=== PATIENT | female | born 1985 | race Caucasian/White ===

== ENCOUNTER 2018-11-08 09:06 | Inpatient (IN) | payer OTHER ==
[~2018-11-08] VITALS: Ht 157.5 cm; Wt 99.5 kg
--- OUTSIDE RECORDS SUMMARY | 2018-11-08 09:08 | XMS REPORT ---
Author Author [facility] Address Unknown Phone Unavailable Care Team Providers Care Stucco Plasterer Name Role Phone SAE VEGA Unavailable Unavailable TITIMARCELLA Unavailable Unavailable Problems This patient has no known problems. Allergies, Adverse Reactions, Alerts This patient has no known allergies or adverse reactions. Medications This patient has no known medications. Results Test Description Test Time Test Comments Text Results Atomic Results Result Comments T3 2018-11-06 14:39:00 T3 TOTAL (BEAKER) (test bwsh=622) 299 ng/dL 48-159 T4, [id number] 17:54:00* Test Item Value Reference Range Comments FREE T4 (BEAKER) (test unon=674) 1.74 ng/dL 0.70-1.48 TSH/FREE T4 IF [id number] 17:24:00* Test Item Value Reference Range Comments THYROID STIMULATING HORMONE (BEAKER) (test eroj=663) 0.01 uIU/mL 0.35-4.94 BASIC METABOLIC [id number] 16:15:00* Test Item Value Reference Range Comments SODIUM (BEAKER) (test puol=054) 139 meq/L 135-148 POTASSIUM (BEAKER) (test gqnw=541) 2.6 meq/L 3.6-5.5 CHLORIDE (BEAKER) (test uhqe=765) 101 meq/L 98-106 CO2 (BEAKER) (test pjqq=815) 28 meq/L 24-32 BLOOD UREA NITROGEN (BEAKER) (test erho=904) 16 mg/dL 10-26 CREATININE (BEAKER) (test mngo=011) 0.98 mg/dL 0.50-1.20 GLUCOSE RANDOM (BEAKER) (test hhdo=311) 92 mg/dL 70-110 CALCIUM (BEAKER) (test cfop=952) 9.7 mg/dL 8.5-10.5 EGFR (BEAKER) (test nabe=4112) 66 mL/min/1.73 sq m ESTIMATED GFR IS NOT ACCURATE CREATININE CLEARANCE IN PREDICTING GLOMERULAR FILTRATION RATE. ESTIMATED GFR IS NOT APPLICABLE FOR DIALYSIS PATIENTS. CBC W/PLT COUNT & AUTO [id number] 16:03:00* Test Item Value Reference Range Comments WHITE BLOOD CELL COUNT (BEAKER) (test hmtx=193) 13.6 K/ L 4.0-10.0 RED BLOOD CELL COUNT (BEAKER) (test orsh=678) 4.80 M/ L 4.00-5.00 HEMOGLOBIN (BEAKER) (test skru=157) 12.8 GM/DL 12.0-15.0 HEMATOCRIT (BEAKER) (test eppp=322) 39.1 % 36.0-45.0 MEAN CORPUSCULAR VOLUME (BEAKER) (test pkyz=296) 81.4 fL 82.0-99.0 MEAN CORPUSCULAR HEMOGLOBIN (BEAKER) (test rjvn=352) 26.6 pg 27.0-33.0 MEAN CORPUSCULAR HEMOGLOBIN CONC (BEAKER) (test fjxt=404) 32.6 GM/DL 32.0-36.0 RED CELL DISTRIBUTION WIDTH (BEAKER) (test ftid=243) 11.9 % 10.3-14.2 PLATELET COUNT (BEAKER) (test abns=607) 262 K/CU MM 150-430 MEAN PLATELET VOLUME (BEAKER) (test tdcv=349) 10.0 fL 6.5-10.5 NEUTROPHILS RELATIVE PERCENT (BEAKER) (test vxti=299) 75 % LYMPHOCYTES RELATIVE PERCENT (BEAKER) (test pwce=780) 14 % MONOCYTES RELATIVE PERCENT (BEAKER) (test zhuz=411) 8 % EOSINOPHILS RELATIVE PERCENT (BEAKER) (test nvfu=610) 2 % BASOPHILS RELATIVE PERCENT (BEAKER) (test jqcj=169) 1 % NEUTROPHILS ABSOLUTE COUNT (BEAKER) (test aciu=426) 10.23 K/ L 1.80-8.00 LYMPHOCYTES ABSOLUTE COUNT (BEAKER) (test bgqt=103) 1.92 K/ L 1.48-4.50 MONOCYTES ABSOLUTE COUNT (BEAKER) (test sezs=396) 1.09 K/ L 0.00-1.30 EOSINOPHILS ABSOLUTE COUNT (BEAKER) (test apug=979) 0.26 K/ L 0.00-0.50 BASOPHILS ABSOLUTE COUNT (BEAKER) (test nhjj=739) 0.10 K/ L 0.00-0.20 URINALYSIS W/ [id number] 16:03:00* Test Item Value Reference Range Comments COLOR (BEAKER) (test rhis=455) Yellow CLARITY (BEAKER) (test eqdt=932) Slightly Cloudy SPECIFIC GRAVITY UA (BEAKER) (test muoe=680) 1.020 1.001-1.035 PH UA (BEAKER) (test vrel=039) 7.0 5.0-8.0 PROTEIN UA (BEAKER) (test vfrg=616) 100 mg/dL Negative GLUCOSE UA (BEAKER) (test chlx=360) Negative Negative KETONES UA (BEAKER) (test nowe=181) Trace Negative BILIRUBIN UA (BEAKER) (test yyif=552) Negative Negative BLOOD UA (BEAKER) (test gqvj=970) Moderate Negative NITRITE UA (BEAKER) (test bvqe=155) Negative Negative LEUKOCYTE ESTERASE UA (BEAKER) (test zchu=945) Moderate Negative UROBILINOGEN UA (BEAKER) (test xbky=536) 0.2 mg/dL 0.2-1.0 BACTERIA (BEAKER) (test fxyf=063) Moderate RBC UA-MANUAL (BEAKER) (test qxsh=1260) <5 /HPF WBC UA-MANUAL (BEAKER) (test mnel=1572) 20-50 /HPF SQUAMOUS EPITHELIAL MANUAL (BEAKER) (test rgtf=3666) 5-10 /HPF Clue cells seen. SOURCE(BEAKER) (test ciqa=3998) SCREEN, [id number] 16:00:00* Test Item Value Reference Range Comments TEST URINE (BEAKER) (test wwhx=929) Negative CT, BRAIN, WITHOUT [id number] 15:57:00Reason for exam:->headacheIs the patient ?->UnknownWhat is the patient's sedation requirement?->No SedationFINAL REPORT CT, BRAIN, WITHOUT CONTRAST CLINICAL INDICATION: headacheupper extremity tremor COMPARISON: None TECHNIQUE: Noncontrast axial CT imaging of the brain and skull. DOSE REDUCTION: Dose modulation, iterative reconstruction, and/or weight-based adjustment of the mA/kV was utilized to reduce the radiation dose to as low as reasonably achievable. FINDINGS:Cerebral parenchyma: Unremarkable.Midline structures: Normally positioned.Cerebellum and brainstem: Normal.Ventricles: Normal volume.Extra-axial spaces: Unremarkable. Calvarium and skull base: Intact.Paranasal sinuses and mastoid air cells: Visible chambers are clear.Orbital contents: Included portions unremarkable. Additional findings: None. IMPRESSION: No acute intracranial abnormality. If there is persistent clinical concern for intracranial pathology, MR examination is recommended for further characterization. Signed: JR Edwards Robert MDRepdenise Verified Date/Time: 11/04/2018 15:57:14 Reading Location: [facility] B1 C013V Neuro Reading R oom UE [id number] 10:06:00Surgical Pathology Report Case: [id number] Authorizing Provider: Marcella May Collected: 11/27/2017 1408 Ordering Location: [facility] Endoscopy Received: 11/27/2017 1614 Services Pathologist: Logan Ernst MD Specimen: Colon Biopsy, Random PART A RANDOM COLON BIOPSY:MILDLY EDEMATOUS COLONIC MUCOSA WITHOUT SIGNIFICANT HISTOPATHOLOGIC ALTERATION.NO SIGNIFICANT ARCHITECTURAL DISTORTION SEEN.NO ABNORMAL COLLAGEN DEPOSITION OR INCREASED EPITHELIAL LYMPHOCYTES SEEN.NO GRANULOMAS, ULCERATION, DYSPLASIA OR INVASIVE CARCINOMA SEEN. Signing Pathologist Direct Phone Line: [phone] signed by Logan Ernst MD on 11/28/2017 at 10:06 [id number] bleeding Random colon biopsy The specimen is received in a formalin-filled container labeled with the patient's information and labeled "random colon biopsy" and consists of three fragments of [place] tissue ranging from 0.1 to 0.3 cm, submitted in A1. CG/ew PERFORMED.
--- OUTSIDE RECORDS SUMMARY | 2018-11-08 09:08 | XMS REPORT | Clinical Summary ---
Author Author [facility] Address Unknown Phone Unavailable Care Team Providers Care Lime Kiln Worker Name Role Phone Tam Llamas PCP Allergies Comments Active Allergy Reactions Severity Noted Date ambien - hallucination Zolpidem Other (See Comments) Medications End Date Status Medication Sig Dispensed Refills Start Date Active cholestyramine (QUESTRAN) Take 1 packet 0 4 gram PwPk packet by mouth 3 (three) times daily with meals. Active hydrOXYzine (ATARAX) 25 Take 25 mg by 0 MG tablet mouth 3 (three) times daily as needed for Itching. Active lithium 300 mg tablet Take 300 mg 0 by mouth 3 (three) times daily. Active omeprazole (PRILOSEC) 20 Take 20 mg by 0 MG capsule mouth daily. Active venlafaxine (EFFEXOR-XR) Take 150 mg 0 150 MG 24 hr capsule by mouth daily. Active traZODone (DESYREL) 100 Take 100 mg 0 MG tablet by mouth nightly. Active Problems Not on file Encounters Care Team Description Date Type Specialty Carlos Myers MD Tremor (Primary Dx); Hypokalemia; Bipolar 1 disorder (HCC); Hyperthyroidism 11/04/2018 Emergency Emergency Medicine 11/04/2018 Leonardo Salmeron MD 11/27/2017 Anesthesia Gastroenterology Event Yadira, Telly COLONOSCOPY,BIOPSY 11/27/2017 Surgery Gastroenterology Yadira, Telly 11/27/2017 Hospital Gastroenterology Encounter Resource, Oqmt Preadmit Phone 11/22/2017 Hospital Pre-Admission Testing Encounter after 11/07/2017 Social History Date Tobacco Use Types Packs/Day Years Used Never Smoker Smokeless Tobacco: Never Used Alcohol Use Drinks/Week oz/Week Comments No Sex Assigned at Date Recorded Not on file Industry Job Start Date Occupation Not on file Not on file Not on file Travel End Travel History Travel Start No recent travel history available. Last Filed Vital Signs Time Taken Vital Sign Reading 11/04/2018 4:17 PM CDT Blood Pressure 121/59 11/04/2018 4:17 PM CDT Pulse 79 11/04/2018 2:47 PM CDT Temperature 36.7 C (98.1 F) 11/04/2018 4:17 PM CDT Respiratory Rate 18 11/04/2018 4:17 PM CDT Oxygen Saturation 100% - Inhaled Oxygen - Concentration 11/04/2018 2:47 PM CDT Weight 100.2 kg (221 lb) 11/04/2018 2:47 PM CDT Height 157.5 cm (5' 2") 11/04/2018 2:47 PM CDT Body Mass Index 40.42 Plan of Treatment Not on file Procedures Comments Procedure Name Priority Date/Time Associated Diagnosis CT BRAIN WITHOUT IV STAT 11/04/2018 CONTRAST 3:57 PM CDT CBC W/PLT COUNT & AUTO STAT 11/04/2018 DIFFERENTIAL 3:36 PM CDT T4, FREE Routine 11/04/2018 3:36 PM CDT T3 AP Routine 11/04/2018 3:36 PM CDT TSH/FREE T4 IF INDICATED STAT 11/04/2018 3:36 PM CDT BASIC METABOLIC PANEL (7) STAT 11/04/2018 3:36 PM CDT CBC W/PLT COUNT & AUTO STAT 11/04/2018 DIFFERENTIAL 3:36 PM CDT URINALYSIS W/ MICROSCOPIC STAT 11/04/2018 3:35 PM CDT SCREEN, URINE STAT 11/04/2018 3:35 PM CDT REPORT OF PROCEDURE - 11/27/2017 ENDOSCOPY URL 2:19 PM CDT TISSUE EXAM AP Routine 11/27/2017 2:08 PM CDT COLONOSCOPY,BIOPSY 11/27/2017 Rectal bleeding 1:30 PM CDT Iron deficiency anemia, unspecified iron deficiency anemia type POCT , URINE STAT 11/27/2017 12:20 PM CDT after 11/07/2017 Results * CT brain without IV contrast (11/04/2018 3:57 PM CDT) Specimen Narrative Performed At FINAL REPORT [employer] [facility] CT, BRAIN, WITHOUT CONTRAST CLINICAL INDICATION:headache upper extremity tremor COMPARISON: None TECHNIQUE:Noncontrast axial CT imaging of the brain and skull. DOSE REDUCTION: Dose modulation, iterative reconstruction, and/or weight-based adjustment of the mA/kV was utilized to reduce the radiation dose to as low as reasonably achievable. FINDINGS: Cerebral parenchyma: Unremarkable. Midline structures: Normally positioned. Cerebellum and brainstem: Normal. Ventricles: Normal volume. Extra-axial spaces: Unremarkable. Calvarium and skull base: Intact. Paranasal sinuses and mastoid air cells: Visible chambers are clear. Orbital contents: Included portions unremarkable. Additional findings: None. IMPRESSION: No acute intracranial abnormality. If there is persistent clinical concern for intracranial pathology, MR examination is recommended for further characterization. Signed: JR Edwards Robert MD Report Verified Date/Time:11/04/2018 15:57:14 Reading Location: [address] Neuro Reading Room Procedure Note Interface, External Ris In - 11/04/2018 3:59 PM CDT FINAL REPORT CT, BRAIN, WITHOUT CONTRAST CLINICAL INDICATION: headache upper extremity tremor COMPARISON: None TECHNIQUE: Noncontrast axial CT imaging of the brain and skull. DOSE REDUCTION: Dose modulation, iterative reconstruction, and/or weight-based adjustment of the mA/kV was utilized to reduce the radiation dose to as low as reasonably achievable. FINDINGS: Cerebral parenchyma: Unremarkable. Midline structures: Normally positioned. Cerebellum and brainstem: Normal. Ventricles: Normal volume. Extra-axial spaces: Unremarkable. Calvarium and skull base: Intact. Paranasal sinuses and mastoid air cells: Visible chambers are clear. Orbital contents: Included portions unremarkable. Additional findings: None. IMPRESSION: No acute intracranial abnormality. If there is persistent clinical concern for intracranial pathology, MR examination is recommended for further characterization. Signed: JR Jerry, Valentina RIDLEY Report Verified Date/Time: 11/04/2018 15:57:14 Reading Location: [facility] C013V Neuro Reading Room Performing Organization Address City/State/Zipcode Phone Number GE RIS * TSH/Free T4 If Indicated (11/04/2018 3:36 PM CDT) TSH 0.01 (L) 0.35 - 4.94 uIU/mL [facility] Specimen Blood Performing Organization Address City/[facility]/Zipcode Phone Number [facility] [address] [place] [address] [facility] * CBC with platelet count + automated diff (11/04/2018 3:36 PM CDT) WBC 13.6 (H) 4.0 - 10.0 K/L [facility] [place] RBC 4.80 4.00 - 5.00 M/L [facility] [place] Hemoglobin 12.8 12.0 - 15.0 GM/DL [facility] Hematocrit 39.1 36.0 - 45.0 % [facility] MCV 81.4 (L) 82.0 - 99.0 fL [facility] MCH 26.6 (L) 27.0 - 33.0 pg [facility] MCHC 32.6 32.0 - 36.0 GM/DL [facility] RDW 11.9 10.3 - 14.2 % [facility] Platelets 262 150 - 430 K/CU MM [facility] MPV 10.0 6.5 - 10.[address] [facility], [facility] % Neutros 75 % [facility], [facility] % Lymphs 14 % [facility], [facility] % Monos 8 % [facility] % Eos 2 % [facility] % Baso 1 % [facility], [facility] # Neutros 10.23 (H) 1.80 - 8.00 K/L [facility], [facility] # Lymphs 1.92 1.48 - 4.50 K/L [facility], [facility], [facility] # Monos 1.09 0.00 - 1.30 K/L [facility], [facility] # Eos 0.26 0.00 - 0.50 K/L [facility], [facility] # Baso 0.10 0.00 - 0.20 K/L [facility], [facility] Specimen Blood Performing Organization Address City/[facility]/Zipcode Phone Number [facility] [address] [place] [address] [facility], [facility] * T3 (11/04/2018 3:36 PM CDT) T3, Total 299 (H) 48 - 159 ng/dL [facility] Specimen Blood Performing Organization Address City/[facility]/Zipcode Phone Number [facility] [address] [place] [address] MED[facility]ENTER * T4, free (11/04/2018 3:36 PM CDT) Free T4 1.74 (H) 0.70 - 1.48 ng/dL [facility] Specimen Blood Performing Organization Address City/[facility]/Zipcode Phone Number [facility] [address] [place] [address] MED[facility] CENTER * Basic Metabolic Panel (11/04/2018 3:36 PM CDT) Sodium 139 135 - 148 meq/L [facility], [facility] [place] Potassium 2.6 (LL) 3.6 - 5.5 meq/L [facility], [facility] [place] Chloride 101 98 - 106 meq/L [facility] CO2 28 24 - 32 meq/L [facility], [facility] [place] BUN 16 10 - 26 mg/dL [facility], [facility] [place] Creatinine 0.98 0.50 - 1.20 mg/dL [facility], [facility] [place] Glucose 92 70 - 110 mg/dL [facility], [facility] Calcium 9.7 8.5 - 10.5 mg/dL [facility], [facility] [place] EGFR 66Comment: ESTIMATED GFR IS mL/min/1.73 sq m [facility] NOT ACCURATE CREATININE [facility] MEDICAL CLEARANCE IN [facility] GLOMERULAR FILTRATION RATE. EMERGENCY CENTER, ESTIMATED GFR IS NOT [facility] APPLICABLE FOR DIALYSIS PATIENTS. Specimen Blood Performing Organization Address City/State/Zipcode Phone Number [facility] [address] [place] [address] [facility], [facility] [place] * Screen, urine (11/04/2018 3:35 PM CDT) Preg Test, Ur Negative [facility], [facility] [place] Specimen Urine Performing Organization Address City/State/Zipcode Phone Number [facility] [address] [place] [address] [facility] * Urinalysis w/Microscopic (11/04/2018 3:35 PM CDT) Color, UA Yellow [facility] Clarity, UA Slightly Cloudy [facility] Specific [place], UA 1.020 1.001 - 1.035 [facility] pH, UA 7.0 5.0 - 8.0 [facility] Protein, UA 100 mg/dL (A) Negative [facility] Glucose, UA Negative Negative [facility] Ketones, UA Trace (A) Negative [facility] Bilirubin, UA Negative Negative [facility] Blood, UA Moderate (A) Negative [facility] Nitrite, UA Negative Negative [facility] Leukocytes, UA Moderate (A) Negative [facility] Urobilinogen, UA 0.2 0.2 - 1.0 mg/dL [facility] Bacteria, UA Moderate [facility] RBC, UA <5 /HPF [facility] WBC, UA 20-50 /HPF [facility], [facility] [place] SQUAMOUS EPITHELIAL 5-10Comment: Clue cells seen. /HPF [facility], [facility] [place] Specimen Source [facility] Specimen Urine Performing Organization Address City/State/Zipcode Phone Number [facility] [address] [place] [address] [facility], [facility] [place] * REPORT OF PROCEDURE - ENDOSCOPY URL (11/27/2017 2:19 PM CDT) Narrative Performed At * Tissue Exam (11/27/2017 2:08 PM CDT) Case Report Surgical Pathology [facility] Case: [id number] Authorizing Provider:Telly May Collected: 11/27/2017 1408 Ordering Location: [facility] Endoscopy Received: 11/27/2017 1614 Services Pathologist: Logan Ernst MD Specimen:Colon Biopsy, Random DIAGNOSIS PART A RANDOM COLON BIOPSY: [facility] MILDLY EDEMATOUS COLONIC [facility] MUCOSA WITHOUT SIGNIFICANT HISTOPATHOLOGIC ALTERATION. NO SIGNIFICANT ARCHITECTURAL DISTORTION SEEN. NO ABNORMAL COLLAGEN DEPOSITION OR INCREASED EPITHELIAL LYMPHOCYTES SEEN. NO GRANULOMAS, ULCERATION, DYSPLASIA OR INVASIVE CARCINOMA SEEN. Signing Pathologist Direct Phone Line: [phone] CPT Code(s) 08852 [facility] CLINICAL HISTORY Rectal bleeding [facility] SPECIMEN SOURCE Random colon biopsy [facility] GROSS DESCRIPTION The specimen is received in a [facility] formalin-filled container [facility] labeled with the patient's information and labeled "random colon biopsy" and consists of three fragments of [place] tissue ranging from 0.1 to 0.3 cm, submitted in A1. CG/ew MICROSCOPIC DESCRIPTION PERFORMED. [facility] Specimen Tissue - Colon Biopsy, Random Performing Organization Address City/[facility]/Zipcode Phone Number [facility] [address] [place] [address] [facility] * POCT , urine (11/27/2017 12:20 PM CDT) Test Urine, POC Negative Control line present?, Yes POC Background clear?, POC Yes UPT Cassette Lot #, POC [id number] UPT Cassette Expiration 07/17/19 Date, POC Specimen after 11/07/2017 Insurance Payer Benefit Subscriber ID Type Phone Address Plan / Group [employer] - MGD CARE CIG[employer] xxxxxxxxxxx HMO/POS HMO/POS/OP EN ACCESS
[2018-11-08 10:11] LABS: BASOPHILS % 0.2 % (0.0-1.0); EOSINOPHILS # (AUTO) 0.2 (0.0-0.4); EOSINOPHILS % 1.1 % (0.0-6.0); HEMOGLOBIN 13.4 g/dL (12.0-16.0); LYMPHOCYTES # (AUTO) 2.6 (1.0-3.2); LYMPHOCYTES % 13.4 % (18.0-39.1); MEAN CORPUSCULAR HEMOGLOBIN 26.6 pg (28-32); MEAN CORPUSCULAR HGB CONC 32.7 g/dL (31-35); MEAN CORPUSCULAR VOLUME 81.5 fL (81-99); MONOCYTES # (AUTO) 1.4 (0.2-0.8); MONOCYTES % 7.4 % (4.4-11.3); NEUTROPHILS # (AUTO) 14.9 (2.1-6.9); NEUTROPHILS % 77.3 % (38.7-80.0); PLATELET COUNT 269 x10e3/uL (140-360); RED BLOOD COUNT 5.03 x10e6/uL (3.6-5.1)
[2018-11-08 10:38] LABS: ALANINE AMINOTRANSFERASE 41 IU/L (0-55); ALBUMIN 3.8 g/dL (3.5-5.0); ALBUMIN/GLOBULIN RATIO 0.9 (0.8-2.0); ALKALINE PHOSPHATASE 171 IU/L (40-150); ANION GAP 13.2 mmol/L (8-16); BLOOD UREA NITROGEN 20 mg/dL (7-26); BUN/CREATININE RATIO 23 (6-25); CALCIUM 10.4 mg/dL (8.4-10.2); CARBON DIOXIDE 26 mmol/L (22-29); CHLORIDE 100 mmol/L (98-107); CREATININE, SERUM 0.86 mg/dL (0.57-1.11); EST GLOMERULAR FILTRATION RATE > 60 ML/MIN (60-); GLUCOSE 79 mg/dL (74-118); POTASSIUM 3.2 mmol/L (3.5-5.1); SODIUM 136 mmol/L (136-145)
[2018-11-08 10:59] LABS: FREE THYROXINE INDEX 2.9626 (1.4-3.8); THYROID STIMULATING HORMONE 0.006 uIU/mL (0.350-4.940)
[2018-11-08 11:26] LABS: BILIRUBIN,URINE NEGATIVE (NEGATIVE); CLARITY,URINE CLEAR (CLEAR); COLOR,URINE YELLOW (YELLOW); KETONES,URINE NEGATIVE (NEGATIVE); LEUKOCYTE ESTERASE ,URINE NEGATIVE (NEGATIVE); NITRITE,URINE NEGATIVE (NEGATIVE); PROTEIN,URINE DIPSTICK 2+ (NEGATIVE); URINE UROBILINOGEN 0.2 mg/dL (0.2 - 1)
[2018-11-08 11:28] LABS: AMPHETAMINES SCREEN,URINE NEGATIVE (NEGATIVE); BENZODIAZEPINES SCREEN,URINE NEGATIVE (NEGATIVE); PHENCYCLIDINE SCREEN,URINE NEGATIVE (NEGATIVE)
[2018-11-08 11:44] LABS: BACTERIA,URINE FEW /HPF; EPITHELIAL CELLS,URINE FEW /LPF; RBC,URINE 21-50 /HPF (0-5); WBC,URINE (MAN) 21-50 /HPF (0-5)
--- OUTSIDE RECORDS SUMMARY | 2018-11-08 12:25 | XMS REPORT | Clinical Summary ---
Author Author [facility] CenterCer[facility] NetworksMan[facility] Address Unknown Phone Unavailable Care Team Providers Care Audiovisual Aids Technician Name Role Phone Tam Llamas PCP Allergies [...] CDT) Specimen Narrative Performed At FINAL REPORT [employer] [facility] CT, BRAIN, WITHOUT CONTRAST CLINICAL INDICATION:headache [...] MD Report Verified Date/Time:11/04/2018 15:57:14 Reading Location: [address] Neuro Reading Room Procedure Note Interface, [...] Report Verified Date/Time: 11/04/2018 15:57:14 Reading Location: [facility] [id number] Neuro Reading Room Performing Organization Address City/State/Zipcode Phone Number [facility] * TSH/Free T4 If Indicated (11/04/2018 3:36 PM CDT) TSH 0.01 (L) 0.35 - 4.94 uIU/mL [facility] Specimen Blood Performing Organization Address City/[facility]/Zipcode Phone Number [facility] [address] [place] [address] [facility] * CBC with platelet count + automated diff (11/04/2018 3:36 PM CDT) WBC 13.6 (H) 4.0 - 10.0 K/L [facility] RBC 4.80 4.00 - 5.00 M/L [facility] Hemoglobin 12.8 12.0 - 15.0 GM/DL [facility], [facility] Hematocrit 39.1 36.0 - 45.0 % [facility] MCV 81.4 (L) 82.0 - 99.0 fL [facility] MCH 26.6 (L) 27.0 - 33.0 pg [facility] MCHC 32.6 32.0 - 36.0 GM/DL [facility] RDW 11.9 10.3 - 14.2 % [facility] Platelets 262 150 - 430 K/CU MM [facility] MPV 10.0 6.5 - 10.5 fL [facility], [facility], [facility] % Neutros 75 % [facility], [facility], [facility] % Lymphs 14 % [facility], [facility], [facility] % Monos 8 % [facility], [facility] % Eos 2 % [facility], [facility] % Baso 1 % [facility], [facility], [facility] # Neutros 10.23 (H) 1.80 - 8.00 K/L [facility], [facility], [facility] # Lymphs 1.92 1.48 - 4.50 K/L [facility], [facility], [facility] # Monos 1.09 0.00 - 1.30 K/L [facility], [facility], [facility] # Eos 0.26 0.00 - 0.50 K/L [facility], [facility], [facility] # Baso 0.10 0.00 - 0.20 K/L [facility], [facility], [facility] Specimen Blood Performing Organization Address City/[facility]/Zipcode Phone Number [facility] [address] [place] [address] [facility], [facility], [facility] * T3 (11/04/2018 3:36 PM CDT) T3, Total 299 (H) 48 - 159 ng/dL [facility] Specimen Blood Performing Organization Address City/[facility]/Zipcode Phone Number [facility] [address] [place] [address] [facility] * T4, free (11/04/2018 3:36 PM CDT) Free T4 1.74 (H) 0.70 - 1.48 ng/dL [facility] Specimen Blood Performing Organization Address City/[facility]/Zipcode Phone Number [facility] [address] [place] [address] [facility] * Basic Metabolic Panel (11/04/2018 3:36 PM CDT) Sodium 139 135 - 148 meq/L [facility], [facility], [facility] Potassium 2.6 (LL) 3.6 - 5.5 meq/L [facility], [facility], [facility] Chloride 101 98 - 106 meq/L [facility], [facility] CO2 28 24 - 32 meq/L [facility], [facility] BUN 16 10 - 26 mg/dL [facility], [facility], [facility] Creatinine 0.98 0.50 - 1.20 mg/dL [facility], [facility], [facility] Glucose 92 70 - 110 mg/dL [facility], [facility], [facility] Calcium 9.7 8.5 - 10.5 mg/dL [facility], [facility], [facility] EGFR 66Comment: ESTIMATED GFR IS mL/min/1.73 sq m [facility] NOT ACCURATE CREATININE [facility] IN [facility] GLOMERULAR FILTRATION RATE. EMERGENCY CENTER, ESTIMATED GFR IS NOT [facility] APPLICABLE FOR DIALYSIS PATIENTS. Specimen Blood Performing Organization Address City/State/Zipcode Phone Number [facility] [address] [place] [address] [facility], [facility], [facility] * Screen, urine (11/04/2018 3:35 PM CDT) Preg Test, Ur Negative [facility], [facility], [facility] Specimen Urine Performing Organization Address City/State/Zipcode Phone Number [facility] [address] [place] [address] [facility], [facility], [facility] * Urinalysis w/Microscopic (11/04/2018 3:35 PM CDT) Color, UA Yellow [facility], [facility] Clarity, UA Slightly Cloudy [facility], [facility] Specific [place], UA 1.020 1.001 - 1.035 [facility] pH, UA 7.0 5.0 - 8.0 [facility] Protein, UA 100 mg/dL (A) Negative [facility] Glucose, UA Negative Negative [facility], [facility] Ketones, UA Trace (A) Negative [facility], [facility] Bilirubin, UA Negative Negative [facility] Blood, UA Moderate (A) Negative [facility] Nitrite, UA Negative Negative [facility], [facility] Leukocytes, UA Moderate (A) Negative [facility], [facility] Urobilinogen, UA 0.2 0.2 - 1.0 mg/dL [facility], [facility] Bacteria, UA Moderate [facility] RBC, UA <5 /HPF [facility], [facility] WBC, UA 20-50 /HPF [facility], [facility], [facility] SQUAMOUS EPITHELIAL 5-10Comment: Clue cells seen. /HPF [facility], [facility], [facility] Specimen Source [facility], [facility], [facility] Specimen Urine Performing Organization Address City/State/Zipcode Phone Number [facility] [address] [place] [address] [facility], [facility], [facility] * REPORT OF PROCEDURE - ENDOSCOPY URL (11/27/2017 2:19 PM CDT) Narrative Performed At * Tissue Exam (11/27/2017 2:08 PM CDT) Case Report Surgical Pathology [facility] Case: [id number] Authorizing Provider:Telly May Collected: 11/27/2017 1408 Ordering Location: [facility] Endoscopy Received: 11/27/2017 1614 Services Pathologist: Logan Ernst MD Specimen:Colon Biopsy, Random DIAGNOSIS PART A RANDOM COLON BIOPSY: [facility] MILDLY EDEMATOUS COLONIC [facility] [place] WITHOUT SIGNIFICANT HISTOPATHOLOGIC ALTERATION. NO SIGNIFICANT ARCHITECTURAL DISTORTION SEEN. NO ABNORMAL COLLAGEN DEPOSITION OR INCREASED EPITHELIAL LYMPHOCYTES SEEN. NO GRANULOMAS, ULCERATION, DYSPLASIA OR INVASIVE CARCINOMA SEEN. Signing Pathologist Direct Phone Line: [phone] CPT Code(s) 70585 [facility] CLINICAL HISTORY Rectal bleeding [facility] SPECIMEN SOURCE Random colon biopsy [facility] GROSS DESCRIPTION The specimen is received in a [facility] formalin-filled container [facility] labeled with the patient's information and labeled "random colon biopsy" and consists of three fragments of [place] tissue ranging from 0.1 to 0.3 cm, submitted in A1. CG/ew MICROSCOPIC DESCRIPTION PERFORMED. [facility] Specimen Tissue - Colon Biopsy, Random Performing Organization Address City/[facility]/Zipcode Phone Number [facility] [address] [place] [address] [facility] * POCT , urine (11/27/2017 12:20 PM [...]
--- NOTE | 2018-11-08 13:21 | Diagnostic Imaging Report ---
Chest radiographs, 2 views Clinical indication: Weakness, shortness of breath Comparison: None Findings: The heart is within normal limits in size. The mediastinal hilar contours are unremarkable. There is no focal consolidation, sizable pleural effusion, or pneumothorax. No acute osseous bodies are identified Impression: No radiographic evidence of acute cardiopulmonary process. Signed by: Jason Arnold MD on 11/08/2018 1:18 PM
[2018-11-08 14:11] LABS: CREATINE KINASE 13 IU/L (29-168)
[2018-11-08] MEDS: POTASSIUM CHLORIDE 20 MEQ TAB CR PO STA ×2 (14:33→15:45)
[2018-11-08 15:25] VITALS: BP 147/97
--- NOTE | 2018-11-08 15:30 | NUR ---
RCD PT FROM ER BY STRETCHER PT IS LETHARGIC AND ORIENTED PT RESTING ON BED SPEECH IS SLURRED VITALS CHECKED ADMISSION ASSESSMENT AND HISTORY DONE SHE ANSWERED ALL THE QUESTIONS IV PATENT BY SALINE FLUSH TALKED HER MOTHER BY TELEPHONE REGARDING HOME MEDS LIST SHE SAID SHE IS BRINGING INSTRUCTED THE PT REGARDING HOSPITAL POLICY AND ROUTINE BED LOW AND LOCKED CALL LIGHT IN REACH
--- NOTE | 2018-11-08 16:00 | NUR ---
TALKED HER MOTHER TO BRING THE HOME MEDICATIONS LIST
[2018-11-08 17:02] VITALS: BP 132/82
[2018-11-08 17:20] VITALS: BP 132/82
--- NOTE | 2018-11-08 18:45 | NUR ---
PT RESTING ON BED BED SIDE REPORT GIVEN TO ONCOMING NURSE
--- NOTE | 2018-11-08 19:00 | NUR ---
RECEIVED PATIENT IN BEDSIDE REPORT. PATIENT SITTING IN CHAIR AT BEDSIDE. NO PAIN REPORTED. NO S&S OF DISTRESS NOTED. MOTHER AT BEDSIDE. BED LOCKED IN LOWEST POSITION, SIDE RAILS UPX2, CALL LIGHT IN REACH.
[2018-11-08] MEDS ORDERED: VENLAFAXINE HCL75 M2 PO (19:36)
[2018-11-08] MEDS ORDERED: LITHIUM CARBON300 M1 PO (19:36)
[2018-11-08] MEDS ORDERED: OMEPRAZOLE40 MG PO (19:36)
[2018-11-08] MEDS ORDERED: KETOROLAC PO (19:36)
[2018-11-08] MEDS ORDERED: ABILIFY5 MG PO (19:36)
[2018-11-08] MEDS ORDERED: METOPROLOL TART50 MG PO (19:36)
[2018-11-08] MEDS ORDERED: GABAPENTIN300 MG PO (19:36)
[2018-11-08] MEDS ORDERED: HYDROXYZINE HCL25 MG PO (19:36)
[2018-11-08] MEDS ORDERED: PREDNISONE20 MG PO (19:36)
[2018-11-08] MEDS ORDERED: BENZONATATE100 MG PO (19:36)
[2018-11-08] MEDS ORDERED: TRAZODONE HCL50 MG PO (19:36)
[2018-11-08] MEDS ORDERED: ULTRAM50 MG PO (19:36)
--- NOTE | 2018-11-08 19:40 | NUR ---
ORDERS RECEIVED FROM LISANDRA MALDONADO TO RESUME HOME MEDS.
[2018-11-08] MEDS ORDERED: TRAMADOL HCL 50 MG TAB PO PRN (19:45)
[2018-11-08] MEDS ORDERED: GABAPENTIN 300 MG CAP PO PRN (19:45)
[2018-11-08] MEDS ORDERED: HYDROXYZINE HCL 25 MG TAB PO PRN (19:45)
[2018-11-08] MEDS ORDERED: BENZONATATE 100 MG CAP PO PRN (19:45)
[2018-11-08 19:50] LABS: CREATINE KINASE MB 0.3 ng/mL (0-5.0)
[2018-11-08 20:27] VITALS: BP 111/72
[2018-11-08 21:04] VITALS: BP 111/72
[2018-11-08] MEDS: TRAZODONE HCL 50 MG TAB PO SCH (21:55)
[2018-11-08] MEDS: METOPROLOL TARTRATE 50 MG TAB PO SCH (21:56)
[2018-11-08] MEDS: PREDNISONE 20 MG TAB PO SCH (21:56)
[2018-11-08] MEDS ORDERED: LITHIUM CARBONATE ER 300 MG TAB PO SCH (22:00)
--- NOTE | 2018-11-08 22:15 | NUR ---
PATIENT REPORTS USING A CPAP FOR SLEEP APNEA. ORDER RECEIVED FROM LISANDRA RIVAS.
[2018-11-09] VITALS (8 sets, daily range): BP systolic 99–142; BP diastolic 52–72
--- NOTE | 2018-11-09 00:11 | NUR ---
CPAP APPLIED BY JESUS FROM RESPIRATORY. SET AT 6 FOR PATIENT COMFORT.
[2018-11-09 04:24] LABS: BASOPHILS % 0.2 % (0.0-1.0); EOSINOPHILS % 0.3 % (0.0-6.0); HEMATOCRIT 38.9 % (34.2-44.1); HEMOGLOBIN 12.4 g/dL (12.0-16.0); LYMPHOCYTES # (AUTO) 1.3 (1.0-3.2); LYMPHOCYTES % 8.7 % (18.0-39.1); MEAN CORPUSCULAR HEMOGLOBIN 26.3 pg (28-32); MEAN CORPUSCULAR HGB CONC 31.9 g/dL (31-35); MEAN CORPUSCULAR VOLUME 82.4 fL (81-99); MONOCYTES # (AUTO) 0.3 (0.2-0.8); MONOCYTES % 2.3 % (4.4-11.3); NEUTROPHILS # (AUTO) 12.6 (2.1-6.9); NEUTROPHILS % 88.1 % (38.7-80.0); PLATELET COUNT 221 x10e3/uL (140-360); RED BLOOD COUNT 4.72 x10e6/uL (3.6-5.1); RED CELL DISTRIBUTION WIDTH 14.1 % (11.7-14.4)
[2018-11-09 05:07] LABS: ANION GAP 14.1 mmol/L (8-16); BLOOD UREA NITROGEN 19 mg/dL (7-26); BUN/CREATININE RATIO 22 (6-25); CALCIUM 10.4 mg/dL (8.4-10.2); CARBON DIOXIDE 23 mmol/L (22-29); CHLORIDE 104 mmol/L (98-107); CREATININE, SERUM 0.88 mg/dL (0.57-1.11); EST GLOMERULAR FILTRATION RATE > 60 ML/MIN (60-); GLUCOSE 131 mg/dL (74-118); POTASSIUM 4.1 mmol/L (3.5-5.1); SODIUM 137 mmol/L (136-145)
[2018-11-09 05:09] LABS: CHOL/HDL RATIO 4.5 (3.0-3.6); MAGNESIUM 2.3 MG/DL (1.3-2.1); PHOSPHORUS 3.3 MG/DL (2.3-4.7)
[2018-11-09 05:56] LABS: CREATINE KINASE MB 0.3 ng/mL (0-5.0)
--- NOTE | 2018-11-09 06:14 | NUR ---
SPOKE WITH MD BECKER FOR CONSULT.
--- NOTE | 2018-11-09 06:25 | NUR ---
PATIENT OFF UNIT TO CT.
--- NOTE | 2018-11-09 06:51 | Diagnostic Imaging Report ---
CT BRAIN WO HISTORY: Altered mental status COMPARISON: None. TECHNIQUE: Noncontrast axial scans were obtained from skull base to the vertex. Coronal and sagittal reconstructions obtained from the axial data. One or more of the following dose reduction techniques were used: Automated exposure control, adjustment of the mA and/or kV according to patient size, and/or utilization of iterative reconstruction technique. DISCUSSION: Scalp/Skull: Unremarkable. Brain sulci: Appropriate for patient's age. Ventricles: Normal in size and configuration. No hydrocephalus. Extra-axial spaces: No masses or fluid collections. Parenchyma: No abnormal densities. No mass, hemorrhage, or large vascular territory acute infarct. Dural sinuses: No abnormal densities. Sellar/Suprasellar region: Intact. Skull base: Intact. Incidental findings: None. IMPRESSION: No intracranial abnormalities. Signed by: Dr. Sergio Art M.D. on 11/09/2018 6:47 AM
[2018-11-09] MEDS ORDERED: SODIUM CHLORIDE 0.9% 250ML 250 ML ONE (07:07)
[2018-11-09] MEDS: CEFTRIAXONE SOD 1 GM/NS 50 ML 50 ML IV SCH (07:12)
[2018-11-09] MEDS: FAMOTIDINE 20 MG TAB PO SCH ×2 (07:52→16:39)
[2018-11-09] MEDS: PANTOPRAZOLE SOD 40 MG TABEC PO SCH (07:52)
[2018-11-09] MEDS: METOPROLOL TARTRATE 50 MG TAB PO SCH ×2 (08:10→16:40)
[2018-11-09] MEDS: PREDNISONE 20 MG TAB PO SCH (08:10)
[2018-11-09] MEDS: ARIPIPRAZOLE 2 MG TABLET PO SCH (08:29)
[2018-11-09 08:33] LABS: PLATELET ESTIMATE ADEQUATE; PLATELET MORPHOLOGY COMMENT FEW EDTA CLUMPING; RBC MORPHOLOGY COMMENT NORMAL
--- NOTE | 2018-11-09 14:17 | NUR ---
Spoke to [facility] pharmacy- Jose Martin, medication dosge verified with pharmacist patient takes Effexor XR 450 mg po daily, medication updated with pharmacy
[2018-11-09] MEDS: VENLAFAXINE HCL 75 MG CAPCR PO SCH (14:50)
[2018-11-09 16:19] LABS: FREE T4 (FREE THYROXINE) 1.01 ng/dL (0.8-1.8); THYROID STIMULATING HORMONE 0.006 uIU/mL (0.350-4.940)
--- NOTE | 2018-11-09 16:32 | Consultation ---
DATE OF CONSULTATION: 11/09/2018 Endocrine Consultation The patient of Dr. Toledo. Thank you very much for referring this patient. HISTORY OF PRESENT ILLNESS: This is a 33-year-old white female who was referred to me for evaluation of hyperthyroidism. The patient was sent by the PCP because of altered mental status and low TSH. She is admitted to the hospital for further evaluation. The patient has significant history for major depression for which she is on lithium. On further evaluation, a TSH was also found to be low. She had a gastric bypass done on 06/21/2018, and since that time, she has lost almost 60 pounds. The patient was found to be slightly hypercalcemic during the hospital stay. She was also found to have UTI. For which she is being treated. She does have family history of thyroid disease. PHYSICAL EXAMINATION: GENERAL: Today, the patient is alert, awake, little bit apprehensive. VITAL SIGNS: Her heart rate is around 80, blood pressure is 130/80 mmHg. HEENT: Essentially unremarkable. Thyroid is barely palpable. CHEST: Bilateral vesicular breathing. No rales. CARDIOVASCULAR: First and second heart sounds. There are no third or fourth heart sounds, ejection systolic murmur grade 2/6. CLINICAL IMPRESSION: Low TSH, rule out hyperthyroidism. Mild hypercalcemia, urinary tract infection. History of bipolar depression, on lithium. The plan at this time is to do a free T3, free T4, TSH, and peroxidase antibody and also an ionized calcium. The condition has been discussed in detail with the patient. I will be following this patient with you. MD JOHN Dennis/ARIEL /[id number] TANNER
[2018-11-09] MEDS: TRAZODONE HCL 50 MG TAB PO SCH (21:17)
[2018-11-09] MEDS: ATORVASTATIN 20 MG TAB PO SCH (21:17)
[2018-11-10] VITALS (9 sets, daily range): BP systolic 102–149; BP diastolic 58–97
[2018-11-10 04:02] LABS: BASOPHILS # (AUTO) 0.1 (0.0-0.1); BASOPHILS % 0.3 % (0.0-1.0); EOSINOPHILS # (AUTO) 0.2 (0.0-0.4); EOSINOPHILS % 1.5 % (0.0-6.0); HEMATOCRIT 37.7 % (34.2-44.1); LYMPHOCYTES # (AUTO) 3.1 (1.0-3.2); LYMPHOCYTES % 20.8 % (18.0-39.1); MEAN CORPUSCULAR HEMOGLOBIN 26.5 pg (28-32); MEAN CORPUSCULAR HGB CONC 31.8 g/dL (31-35); MEAN CORPUSCULAR VOLUME 83.2 fL (81-99); MONOCYTES # (AUTO) 0.8 (0.2-0.8); MONOCYTES % 5.6 % (4.4-11.3); NEUTROPHILS # (AUTO) 10.6 (2.1-6.9); NEUTROPHILS % 71.3 % (38.7-80.0); PLATELET COUNT 266 x10e3/uL (140-360); RED BLOOD COUNT 4.53 x10e6/uL (3.6-5.1); RED CELL DISTRIBUTION WIDTH 14.2 % (11.7-14.4)
[2018-11-10 04:13] LABS: ANION GAP 12.5 mmol/L (8-16); BLOOD UREA NITROGEN 16 mg/dL (7-26); BUN/CREATININE RATIO 17 (6-25); CARBON DIOXIDE 27 mmol/L (22-29); CHLORIDE 107 mmol/L (98-107); CREATININE, SERUM 0.94 mg/dL (0.57-1.11); EST GLOMERULAR FILTRATION RATE > 60 ML/MIN (60-); GLUCOSE 100 mg/dL (74-118); POTASSIUM 3.5 mmol/L (3.5-5.1); SODIUM 143 mmol/L (136-145)
[2018-11-10] MEDS: CEFTRIAXONE SOD 1 GM/NS 50 ML 50 ML IV SCH (05:58)
--- NOTE | 2018-11-10 07:49 | NUR ---
Report given to oncoming nurse Tia, walking round done.
[2018-11-10] MEDS: FAMOTIDINE 20 MG TAB PO SCH ×2 (09:00→16:39)
[2018-11-10] MEDS: VENLAFAXINE HCL 75 MG CAPCR PO SCH (09:00)
[2018-11-10] MEDS: PANTOPRAZOLE SOD 40 MG TABEC PO SCH (09:00)
[2018-11-10] MEDS: ARIPIPRAZOLE 2 MG TABLET PO SCH (09:00)
[2018-11-10] MEDS: METOPROLOL TARTRATE 50 MG TAB PO SCH ×2 (09:01→16:40)
[2018-11-10] MEDS: PREDNISONE 20 MG TAB PO SCH (09:01)
[2018-11-10] MEDS ORDERED: FUROSEMIDE INJ 10 MG/ML 2 ML VIAL IV NR (15:15)
[2018-11-10] MEDS: SODIUM CHLORIDE 0.9% 1000ML 1,000 ML IV SCH (15:30)
[2018-11-10] MEDS: ATORVASTATIN 20 MG TAB PO SCH (21:34)
[2018-11-10] MEDS: TRAZODONE HCL 50 MG TAB PO SCH (21:34)
[2018-11-11] VITALS (8 sets, daily range): BP systolic 106–125; BP diastolic 58–76
[2018-11-11] MEDS: SODIUM CHLORIDE 0.9% 1000ML 1,000 ML IV SCH ×3 (02:51→20:18)
[2018-11-11] MEDS: CEFTRIAXONE SOD 1 GM/NS 50 ML 50 ML IV SCH (04:58)
[2018-11-11 05:30] LABS: BASOPHILS # (AUTO) 0.1 (0.0-0.1); BASOPHILS % 0.4 % (0.0-1.0); EOSINOPHILS # (AUTO) 0.3 (0.0-0.4); EOSINOPHILS % 1.9 % (0.0-6.0); HEMATOCRIT 39.3 % (34.2-44.1); HEMOGLOBIN 12.5 g/dL (12.0-16.0); LYMPHOCYTES # (AUTO) 3.1 (1.0-3.2); LYMPHOCYTES % 21.9 % (18.0-39.1); MEAN CORPUSCULAR HEMOGLOBIN 26.3 pg (28-32); MEAN CORPUSCULAR HGB CONC 31.8 g/dL (31-35); MEAN CORPUSCULAR VOLUME 82.6 fL (81-99); MONOCYTES # (AUTO) 0.9 (0.2-0.8); MONOCYTES % 6.2 % (4.4-11.3); NEUTROPHILS # (AUTO) 9.8 (2.1-6.9); NEUTROPHILS % 69.2 % (38.7-80.0); PLATELET COUNT 253 x10e3/uL (140-360); RED BLOOD COUNT 4.76 x10e6/uL (3.6-5.1)
[2018-11-11 05:48] LABS: ANION GAP 11.2 mmol/L (8-16); BLOOD UREA NITROGEN 14 mg/dL (7-26); BUN/CREATININE RATIO 15 (6-25); CALCIUM 9.3 mg/dL (8.4-10.2); CARBON DIOXIDE 22 mmol/L (22-29); CHLORIDE 107 mmol/L (98-107); CREATININE, SERUM 0.95 mg/dL (0.57-1.11); EST GLOMERULAR FILTRATION RATE > 60 ML/MIN (60-); GLUCOSE 93 mg/dL (74-118); POTASSIUM 3.2 mmol/L (3.5-5.1); SODIUM 137 mmol/L (136-145)
[2018-11-11] MEDS ORDERED: POTASSIUM CHLORIDE 20 MEQ TAB CR PO ONE (06:30)
[2018-11-11] MEDS: PREDNISONE 20 MG TAB PO SCH (08:20)
[2018-11-11] MEDS: PANTOPRAZOLE SOD 40 MG TABEC PO SCH (08:20)
[2018-11-11] MEDS: METOPROLOL TARTRATE 50 MG TAB PO SCH ×2 (08:20→16:40)
[2018-11-11] MEDS: ARIPIPRAZOLE 2 MG TABLET PO SCH (08:20)
[2018-11-11] MEDS: FAMOTIDINE 20 MG TAB PO SCH ×2 (08:20→16:40)
[2018-11-11] MEDS: VENLAFAXINE HCL 75 MG CAPCR PO SCH (08:20)
[2018-11-11] MEDS ORDERED: FUROSEMIDE INJ 10 MG/ML 2 ML VIAL IV NR (09:00)
[2018-11-11] MEDS: ATORVASTATIN 20 MG TAB PO SCH (20:18)
[2018-11-11] MEDS: TRAZODONE HCL 50 MG TAB PO SCH (20:18)
[2018-11-12] VITALS (7 sets, daily range): BP systolic 97–124; BP diastolic 54–76
--- NOTE | 2018-11-12 00:12 | Consultation ---
DATE OF CONSULTATION: 11/11/2018 Psychiatric Consultation The patient evaluated and events noted. REASON FOR CONSULTATION: To evaluate the patient's mood and psychosis. HISTORY OF PRESENT ILLNESS: The patient is a 33-year-old female admitted to the hospital for altered mental status, low TSH level, and hypothyroidism. Psychiatric consultation is called to evaluate the patient's psychosis and mood. As per medical record, the patient has a history of hypothyroidism, bipolar, history of gastric bypass done on June 21, 2018, and UTI. Upon evaluation today, the patient is found to be sitting in the chair in her room. She is alert, awake, and oriented to situation. She claims that she is in the hospital due to tremors and elevated lithium level. She denies any depression at this time, but reports feeling anxious. She reports intermittent problem with sleep. Denies any appetite problems. She reports intermittent hallucination, claiming she is seeing cartoon figures at times. She is not paranoid or illusional. She is calm and cooperative. PAST PSYCHIATRIC HISTORY: The patient reports history of depression and anxiety of one year. She denies past suicide attempts. She denies alcohol and drug use. FAMILY HISTORY: She reports mom with depression. SOCIAL HISTORY: The patient states she lived with her mom. MENTAL STATUS EXAM: The patient is young female. She is oriented to situation. Mood is anxious. She denies any suicidal or homicidal ideation. Affect is congruent with mood. Psychomotor state is passive. Denies any hallucination. Thought process is concrete. No delusion elicited. Memory appears to be grossly intact. CURRENT MEDICATIONS: 1. Famotidine. 2. Prednisolone. 3. Protonix. 4. Lopressor. 5. Ceftriaxone. 6. Sodium chloride. 7. Lipitor. 8. Trazodone 100 mg p.o. at bedtime. 9. Effexor XR 450 daily. 10. Abilify 2 mg daily. 11. Atarax p.r.n. 12. Neurontin 300 b.i.d. p.r.n. 13. Benzonatate. CURRENT LABS: WBC is 14.13, RBC 4.76, hemoglobin 12.5, hematocrit 39.8, and platelets is 253. Sodium is 137, potassium 3.2, chloride 107, CO2 of 22, BUN 14, creatinine 0.95. [place] level on the is 1.6. ASSESSMENT: Bipolar 1 disorder, recurrent, depressed, moderate. PLAN: 1. To reduce Effexor XR 225 mg p.o. daily. 2. Increase Abilify to 4 mg p.o. daily. 3. Continue Atarax p.r.n. 4. Continue trazodone 100 mg p.o. at bedtime. 5. Monitor for mood. 6. Supportive therapy. Thank you for this consultation. Dictated by Elvira Salgado PA-C Krystian Williamson MD QTV/MODL /[id number]
[2018-11-12 03:53] LABS: BASOPHILS % 0.3 % (0.0-1.0); EOSINOPHILS # (AUTO) 0.3 (0.0-0.4); EOSINOPHILS % 1.8 % (0.0-6.0); HEMATOCRIT 37.4 % (34.2-44.1); HEMOGLOBIN 12.1 g/dL (12.0-16.0); LYMPHOCYTES # (AUTO) 3.2 (1.0-3.2); LYMPHOCYTES % 21.6 % (18.0-39.1); MEAN CORPUSCULAR HEMOGLOBIN 26.8 pg (28-32); MEAN CORPUSCULAR HGB CONC 32.4 g/dL (31-35); MEAN CORPUSCULAR VOLUME 82.7 fL (81-99); MONOCYTES # (AUTO) 0.9 (0.2-0.8); MONOCYTES % 6.4 % (4.4-11.3); NEUTROPHILS # (AUTO) 10.2 (2.1-6.9); NEUTROPHILS % 69.5 % (38.7-80.0); PLATELET COUNT 234 x10e3/uL (140-360); RED BLOOD COUNT 4.52 x10e6/uL (3.6-5.1); RED CELL DISTRIBUTION WIDTH 14.2 % (11.7-14.4)
[2018-11-12 04:11] LABS: ANION GAP 9.5 mmol/L (8-16); BLOOD UREA NITROGEN 13 mg/dL (7-26); BUN/CREATININE RATIO 16 (6-25); CALCIUM 9.2 mg/dL (8.4-10.2); CARBON DIOXIDE 23 mmol/L (22-29); CHLORIDE 110 mmol/L (98-107); CREATININE, SERUM 0.82 mg/dL (0.57-1.11); EST GLOMERULAR FILTRATION RATE > 60 ML/MIN (60-); GLUCOSE 81 mg/dL (74-118); POTASSIUM 3.5 mmol/L (3.5-5.1); SODIUM 139 mmol/L (136-145)
--- NOTE | 2018-11-12 05:08 | Consultation ---
DATE OF CONSULTATION: 11/11/2018 Neurology consult note HISTORY OF PRESENT ILLNESS: Ms. Camarillo is a 33-year-old right-hand dominant woman with past medical history significant for bipolar disorder and obstructive sleep apnea, admitted to [facility] on November 08, 2018, with acute encephalopathy. In the emergency center at [facility], the patient was found to have a low TSH suggestive of hyperthyroidism. Furthermore, the patient's urinalysis was suspicious for urinary tract infection. Ms. Camarillo was admitted to [facility] as an inpatient for further evaluation and treatment of her symptoms. The Neurology consultation is requested for evaluation and treatment of the patient's tremor. Ms. Camarillo endorses an action tremor affecting both hands equally. The tremor makes it difficult for the patient to button buttons and zipp zippers. Otherwise, her daily activities are not impaired. Ms. Camarillo does not report worsening of the tremor with psychosocial stress or caffeine. The patient does not consume alcohol, so it is unknown if alcohol improves the tremor. The patient does not report hypophonia, bradykinesia, poor balance with impairment of gait, multiple falls, confusion, or auditory hallucinations. The tremor described above began approximately one year ago. Of note, the patient was prescribed lithium for treatment of bipolar disorder approximately one year ago as well. Ms. Camarillo reports her physicians have prescribed metoprolol 50 mg by mouth twice daily for treatment of her tremor. However, the tremor did not respond to treatment with this medication. There is no known family history of tremor or Parkinson disease. REVIEW OF SYSTEMS: Confusion, tremor. Otherwise, a 12-point review of systems is negative. PAST MEDICAL HISTORY: Recently diagnosed hyperthyroidism, gastroesophageal reflux disease, bipolar disorder, tremor, and obstructive sleep apnea. PAST SURGICAL HISTORY: Gastric bypass in June of 2018, bilateral tubal ligation, bladder sling, tumor resected from the right thigh, and cholecystectomy. PAST HOSPITALIZATIONS: Surgeries/procedures as listed. FAMILY MEDICAL HISTORY: Depression. Multiple paternal relatives have or had Mayte's disease. Multiple paternal relatives have or have had skin cancer. The patient's paternal grandfather is from pancreatic cancer. SOCIAL HISTORY: Ms. Camarillo is . 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 The patient does not report current or prior tobacco, alcohol, or recreational drug use. HOME MEDICATIONS: Abilify 2 mg by mouth daily, benzonatate 100 mg by mouth 3 times daily as needed, gabapentin 300 mg by mouth twice daily as needed, hydroxyzine 25 mg by mouth every 6 hours as needed, lithium carbonate 900 mg by mouth at bedtime daily, metoprolol tartrate 50 mg by mouth twice daily, omeprazole 20 mg by mouth before breakfast, prednisone 40 mg by mouth daily, tramadol 50 mg by mouth every 6 hours as needed for pain, trazodone 100 mg by mouth at bedtime daily, venlafaxine 450 mg by mouth before breakfast daily, ketorolac 10 mg by mouth every 6 hours as needed for pain. HOSPITAL MEDICATIONS: Abilify, atorvastatin, benzonatate, ceftriaxone, Pepcid, gabapentin, hydroxyzine, metoprolol, Protonix, prednisone, trazodone, and venlafaxine. ALLERGIES: ZOLPIDEM. NO KNOWN FOOD ALLERGIES. NO KNOWN ALLERGIES TO LATEX. NO KNOWN ALLERGIES TO IODINE OR OTHER CONTRAST MATERIALS. PHYSICAL EXAMINATION: VITAL SIGNS: Height 62 inches, weight 219 pounds, BMI 40.1 kg/m2, blood pressure 124/76 mmHg, pulse 75 beats per minute, respiratory rate 20 breaths per minute, and oxygen saturation 96% on room air. General: The patient is awake and alert, does not appear distressed. Morbidly obese. HEENT: Normocephalic, atraumatic. Pupils are equal, round, and reactive to light. Moist mucous membranes. NECK: Supple. No appreciable thyromegaly. No appreciable carotid bruits. CARDIOVASCULAR: S1, S2, regular rate and rhythm. No murmurs, rubs, or gallops. RESPIRATORY: Clear to auscultation bilaterally. No wheezes, rhonchi, or rales. EXTREMITIES: The skin is warm and dry. No clubbing, cyanosis, or edema. The posterior tibial and dorsalis pedis pulses are 2+ and symmetric. SKIN: No rashes or lesions. NEUROLOGIC: Memory/Attention: The patient is awake and alert, oriented to person, place, time, and situation. Cranial Nerves: Cranial nerve I - not tested. Cranial nerve II, III, IV, and - pupils are equal and round, reactive briskly to light (from 6 mm to 4 mm). Extraocular movements intact. No nystagmus. Cranial nerve V - sensation to light touch and pinprick is intact in the bilateral V1 through V3 distributions. Strength in the temporalis and masseter muscles are within normal limits. Cranial nerve VII - the face is symmetric as are all facial movements. Strength is within normal limits. Cranial nerve VIII - hearing is intact to finger rub bilaterally. Cranial nerve IX, X - the soft palate elevates equally and symmetrically. Cranial nerve XI - normal strength to the bilateral sternocleidomastoid and trapezius muscles. Cranial nerve XII - the tongue protrudes midline and moves symmetrically from [id number]. Strength: Bulk is normal. Strength is 5/5 in the bilateral deltoids, biceps, triceps, wrist flexors and extensors, finger flexors and extensors, intrinsic hand muscles, hip flexors, knee flexors and extensors, ankle dorsiflexion and plantar flexion, and intrinsic foot muscles. Tone is normal. DTRs: Deep tendon reflexes are 3+ and symmetric at the triceps, biceps, brachioradialis, patellas, and Achilles. Plantar responses are flexor bilaterally. Sensation: Sensation is intact to light touch and pinprick in both arms and both legs. Cerebellar: Wydrwx-[id number]-wmuzwg and heel-moeller movements are intact without dysmetria or other impairment. Rapid alternating movements are very mildly impaired in both hands. Gait: Deferred. Speech: Spontaneous speech is normal without appreciable dysarthria or aphasia. Repetition is intact. Involuntary movements: None. Pronator Drift: None. LABORATORY DATA: The most recent basic metabolic panel is significant only for potassium of 3.2. Cardiac enzymes are negative x3. A liver function panel collected on November 08, 2018, was significant for an elevated alkaline phosphatase of 171, as well as a mildly elevated globulin of 4.2. TSH 0.006, free T4 index 2.9626, thyroxine (T4) 9.27, T3 uptake 31.96. Hemoglobin A1c 5.1. Total cholesterol 141, triglycerides 186, LDL cholesterol 73, and HDL cholesterol 31. The CBC with differential and platelets reveals a mildly elevated white blood cell count of 14.13 with a normal differential. The hemoglobin and hematocrit are 12.5 and 39.3, respectively. The platelet count is 253. A urinalysis collected on November 08, 2018, revealed 2+ glucose, 21 to 50 red blood cells, 21 to 50 white blood cells. A urine drug screen collected on November 08, 2018, was negative. Serum lithium level collected on November 08, 2018, was 1.6. A urine culture collected on November 08, 2018, revealed mixed marilee. Blood cultures drawn on November 11, 2018 are pending. DIAGNOSTIC STUDIES: Chest x-ray on 11/08/2018: No radiographic evidence of acute cardiopulmonary process. CT of the brain without contrast 11/09/2018: On my review, there is no evidence of recent or remote large territorial ischemia, hemorrhage, mass, or mass effect. Cerebral volumes are appropriate for age. There are no findings suggestive of chronic small vessel ischemic disease. ASSESSMENT AND PLAN: Ms. Camarillo is a 33-year-old right-hand dominant woman with past medical history as detailed, admitted to [facility] on November 08, 2018, with encephalopathy in the setting of a low TSH, suspicious for hyperthyroidism as well as a mildly elevated lithium level of 1.6. In addition to the above-described symptoms, the patient has experienced an action tremor affecting both hands for the past one year. This tremor is fully described in the history of present illness. On neurological examination, the patient has very mild impairment of rapid alternating movements in both hands. Otherwise, her neurological examination is nonfocal. Her the patient's laboratory data and other diagnostic studies have been reviewed and are documented above. In my opinion, the patient's tremor is a side effect of treatment with lithium. As stated in history of present illness, the tremor began approximately one year ago. Near the same time, the patient began treatment with lithium for bipolar disorder. Other diagnoses such as hyperthyroidism, or benign essential tremor as the etiology of the patient's tremor are less likely given the timing of the tremor as well as other details as written in the history of present illness. Fortunately, lithium tremor often significantly improves/resolves with cessation of lithium. Therefore, Ms. Camarillo's action tremor should continue to gradually improve as the lithium leaves her body. Thank you for this consultation. There are no other recommendations from the Neurology Service at this time. TIME SPENT: 70 minutes. Jannette Godinez MD CP/ARIEL /[id number] TANNER
[2018-11-12] MEDS: CEFTRIAXONE SOD 1 GM/NS 50 ML 50 ML IV SCH (05:22)
--- NOTE | 2018-11-12 07:00 | NUR ---
REPORT GIVEN TO JW CANALES AT THIS TIME.
[2018-11-12] MEDS ORDERED: EFFEXOR XR75 MG PO (07:24)
[2018-11-12] MEDS ORDERED: ABILIFY2 MG PO (07:24)
[2018-11-12] MEDS ORDERED: VENLAFAXINE HCL 75 MG CAPCR PO SCH (07:30)
[2018-11-12] MEDS: FAMOTIDINE 20 MG TAB PO SCH (09:00)
[2018-11-12] MEDS: METOPROLOL TARTRATE 50 MG TAB PO SCH (09:00)
[2018-11-12] MEDS: PANTOPRAZOLE SOD 40 MG TABEC PO SCH (09:00)
[2018-11-12] MEDS ORDERED: ARIPIPRAZOLE 2 MG TABLET PO SCH (09:00)
[2018-11-12] MEDS: PREDNISONE 20 MG TAB PO SCH (09:00)
--- NOTE | 2018-11-12 09:00 | NUR ---
Paged Dr. Williamson for dc planning/medications. Awaiting call back
--- NOTE | 2018-11-12 11:08 | NUR ---
No call back from Dr. Williamson earlier. Paged again. Awaiting call back
--- NOTE | 2018-11-12 14:41 | NUR ---
Prescriptions to be called into patient's pharmacy by [facility]
--- NOTE | 2018-11-12 15:14 | NUR ---
Discharge instructions given to the patient, she verbalized understanding. IV to the left ac was removed with tip intact.
--- NOTE | 2018-11-12 17:25 | Progress Note ---
DATE: 11/12/2018 Psychiatric Progress Note SUBJECTIVE: The patient evaluated and events noted. The patient is in the room. She is sitting down. She is calm and cooperative. She reports doing better. She denies any depression. Denies anxiety. She appears to be at baseline. She is oriented to situation. She denies any hallucination. Denies any problem with sleep or appetite. She denies any side effects from medication. ASSESSMENT: 1. Bipolar one disorder. 2. Recurrent depressed, moderate. PLAN: 1. Continue with Abilify 4 mg p.o. daily. 2. Continue Ativan p.r.n. 3. Continue trazodone 100 mg p.o. at bedtime. 4. Continue with Effexor XR. 5. Monitor for mood. 6. Supportive therapy. Dictated by Elvira Salgado PA-C Krystian Williamson MD QTV/MODL /[id number]
--- NOTE | 2018-11-13 23:32 | Discharge Summary ---
ADMISSION DIAGNOSES: Urinary tract infection with sepsis, present on admission; bipolar; obstructive sleep apnea; altered mental status; hypercalcemia; hyperlipidemia; low TSH; obesity with a BMI of 39.9. DISCHARGE DIAGNOSES: Urinary tract infection with sepsis, present on admission; bipolar; obstructive sleep apnea; altered mental status; hypercalcemia; hyperlipidemia; low TSH; obesity with a BMI of 39.9; possible hyperthyroidism; tremors related to lithium use. HISTORY: The patient has a history of bipolar and obstructive sleep apnea. SURGICAL HISTORY: The patient had a gastric bypass on 08/21/2018, had a right thigh tumor removal, bladder sling, and bilateral tubal ligation. FAMILY HISTORY: The patient's father, aunts, and uncles had cancer. SOCIAL HISTORY: Noncontributory. HOSPITAL COURSE: A 33-year-old female was sent to the ER by her primary care doctor due to a slow response and AMS. She has history of tremors and was seen by Cardiology and cleared. Neuro thinks her symptoms are related to the low TSH or medication side effects. She admits to unsteadiness x1 week, but denies falls. On admission, chest x-ray was negative. CT of the brain was negative. Urine culture came back contaminated, but the white count improved with Rocephin. Psych was consulted regarding the psych medications and lithium level, which took many days to come back, but it came back at 1.6. Per Cardiology recommendation, she was discontinued lithium, increased Abilify to 4 mg daily, and reduced Effexor to 225 daily. Neurology was also consulted for the worsening tremors per patient report. Per Neuro recommendation, the tremor seemed to be related to the lithium use. As the lithium is eliminated from her system, the tremors should improve. The patient will discharge home with new prescriptions for Abilify and Effexor. She will stop taking the lithium. The patient understands discharge instructions and agrees to plan. Vital signs stable, the patient afebrile. Dictated by Magdalena Morales NP Kali Toledo MD FRANK/MODL /[id number]
== END 2018-11-12 15:17 | disposition home or self-care (01) | DRG 871 ==
LOC: ER 09:06 → ERHOLD 12:02 → MED/SURG2 15:17
PROVIDERS: ADMIT Internal Medicine; ATTEND Internal Medicine
DX: A41.9 Sepsis, unspecified organism (principal); G93.41 Metabolic encephalopathy; G93.40 Encephalopathy, unspecified; N39.0 Urinary tract infection, site not specified; Z68.41 Body mass index [BMI] 40.0-44.9, adult; G47.33 Obstructive sleep apnea (adult) (pediatric)
CPT/HCPCS: 36415; 70450; 71046; 80048; 80053; 80061; 80178; 80307; 81001; 82306; 82550; 82553; 82948; 83036; 83735; 83970; 84100; 84436; 84439; 84443; 84479; 84481; 84484; 84702; 85025; 87040; 87086; 94660; 96361; 99284; J0696; J1940; J7030; J7050; J7512